=== PATIENT | male | born 1985 | race Caucasian/White ===

== ENCOUNTER 2020-07-13 10:58 | Emergency (ER) | payer BC ==
[~2020-07-13] VITALS: Ht 190.5 cm; Wt 79.4 kg
[2020-07-13] MEDS ORDERED: ONDANSETRON 4 MG/2 ML VIAL IV ONE (11:30)
[2020-07-13] MEDS ORDERED: PANTOPRAZOLE SODIUM 40 MG VIAL IV ONE (11:30)
[2020-07-13] MEDS ORDERED: IV NORMAL SALINE 1000 ML BAG IV ONE (11:30)
[2020-07-13 11:31] LABS: BASOPHILS # (AUTO) 0.1 K/uL (0.0-8.0); BASOPHILS % (AUTO) 1.3 % (0.0-2.0); EOSINOPHILS % (AUTO) 0.4 % (0.0-7.0); HEMATOCRIT 48.9 % (36.7-47.1); HEMOGLOBIN 16.7 g/dL (12.5-16.3); LYMPHOCYTES # (AUTO) 1.8 K/uL (20.0-40.0); LYMPHOCYTES % (AUTO) 15.1 % (20.5-51.5); MEAN CORPUSCULAR HEMOGLOBIN 30.9 uug (23.8-33.4); MEAN CORPUSCULAR HGB CONC 34 g/dL (32.5-36.3); MEAN CORPUSCULAR VOLUME 90.6 fL (73.0-96.2); MONOCYTES # (AUTO) 1.1 K/uL (2.0-10.0); MONOCYTES % (AUTO) 9.1 % (0.0-11.0); NEUTROPHILS # (AUTO) 8.7 K/uL (1.8-8.9); NEUTROPHILS % (AUTO) 74.1 % (38.5-71.5); PLATELET COUNT (AUTO) 365 K/uL (152-348); WHITE BLOOD COUNT (AUTO) 11.7 K/uL (3.6-10.2)
[2020-07-13 11:33] LABS: CREATININE 1.1 mg/dL (0.6-1.3)
[2020-07-13 11:39] LABS: BILIRUBIN,DIRECT 0.1 mg/dL (0.0-0.2); BILIRUBIN,TOTAL 0.7 mg/dL (0.2-1.0); TOTAL PROTEIN, SERUM 8.4 g/dL (6.4-8.2)
[2020-07-13] MEDS ORDERED: ONDANSETRON 4 MG/2 ML VIAL ONE (11:41)
[2020-07-13] MEDS ORDERED: PANTOPRAZOLE SODIUM 40 MG VIAL ONE (11:41)
--- NOTE | 2020-07-13 11:50 | NUR ---
PT IS IN ROOM #2B. DR BAEZ EVALUATED THE PT.
[2020-07-13] MEDS ORDERED: ONDA4TAB11 PO (13:14)
[2020-07-13] MEDS ORDERED: OMEP40CA13 PO (13:14)
--- NOTE | 2020-07-13 13:29 | NUR ---
PT WAS D/C'd TO HOME. D/C INSTRUCTIONS GIVEN TO THE PT BY DR BAEZ.
[2020-07-13 13:30] VITALS: BP 138/88
== END 2020-07-13 13:31 | disposition home or self-care (01) ==
LOC: ER 10:58
DX: R11.2 Nausea with vomiting, unspecified (principal); E86.0 Dehydration; E87.6 Hypokalemia; Z72.89 Other problems related to lifestyle
CPT/HCPCS: 36415; 80048; 80076; 84443; 85025; 96361; 96374; 96375; 99284; C9113; J2405; A4663; J7030